=== PATIENT | male | born 1930 | race African-American/Black ===

== ENCOUNTER 2017-08-24 09:16 | Emergency (ER) | payer MEDICARE ==
[~2017-08-24] VITALS: Ht 175.3 cm; Wt 79.4 kg
[2017-08-24 09:08] VITALS: BP 142/92
[~2017-08-24 09:16] MED LIST: CARVEDILOL6.25 MG ORAL; SIMVASTATIN10 MG ORAL
[2017-08-24] MEDS ORDERED: ROBAXIN-750750 MG PO (09:27)
[2017-08-24] MEDS ORDERED: ACETAMINOPHEN500 M3 ORAL (09:27)
[2017-08-24] MEDS ORDERED: Methocarbamol 750mg tab ORAL ONE (09:30)
[2017-08-24 09:46] VITALS: BP 142/92
--- NOTE | 2017-08-24 09:49 | Emergency Room Report ---
History of Present Illness General Chief Complaint: Neck Pain Source: Patient, EMS Present Illness HPI 57-year-old male, hypertension, carotid artery atherosclerosis, being followed by his doctor no surgery necessary at this time, chronic neck spasms for 6 months, presenting with left-sided neck spasm. Patient states he reached over to get something on his bed, had sudden onset of left-sided neck spasms worsened with movement. Denies any headache, blurry vision, slurred speech, motor or sensory weakness. Patient states that he has had this neck spasms multiple times in the past but has never taken any medication because it was never authorized by a doctor Denies fever chills nausea vomiting Pain has improved since coming to the emergency room Allergies: Coded Allergies: No Known Allergies (Unverified , 04/19/14) Patient History Past Medical History: see triage record Past Surgical History: none Pertinent Family History: none Reviewed Nursing Documentation: PMH: Agreed, PSxH: Agreed Nursing Documentation-PMH Past Medical History: No History, Except For Hx Cardiac Problems: No - PROSTATE CA Hx Hypertension: Yes - ARTERIAL BLOCKAGE Hx Cancer: No Hx Gastrointestinal Problems: Yes Hx Neurological Problems: No Review of Systems All Other Systems: negative except mentioned in HPI Physical Exam Vital Signs Date Time Temp Pulse Resp B/P (MAP) Pulse Ox O2 Delivery O2 Flow Rate FiO2 08/24/17 09:00 98.8 92 16 142/92 98 Room Air Sp02 EP Interpretation: reviewed, normal General Appearance: normal inspection, well appearing, no apparent distress, alert, GCS 15, non-toxic Head: normocephalic, atraumatic Eyes: bilateral eye normal inspection, bilateral eye PERRL, bilateral eye EOMI ENT: normal ENT inspection, normal pharynx, normal voice, moist mucus membranes Neck: other - Mild left-sided paraspinal cervical tenderness, tenderness along left deltoid region, full range of motion, no midline tenderness Respiratory: normal inspection, lungs clear, normal breath sounds, no respiratory distress, no retraction, no wheezing, speaking full sentences, chest symmetrical Cardiovascular #1: normal inspection, regular rate, rhythm, no edema, normal capillary refill Cardiovascular #2: 2+ radial (R), 2+ radial (L) Gastrointestinal: normal inspection, non tender, soft, non-distended, no guarding Musculoskeletal: normal inspection, back normal, normal range of motion, non- tender Neurologic: normal inspection, alert, oriented x3, responsive, rn bsn III-XII nml as tested, motor strength/tone normal, sensory intact, normal gait, speech normal Psychiatric: normal inspection, judgement/insight normal, memory normal Skin: normal inspection, normal color, no rash, warm/dry, well hydrated, normal turgor Medical Decision Making Diagnostic Impression: Primary Impression: Neck muscle spasm Additional Impression: Chronic neck pain ER Course 87-year-old male history of chronic neck pain presenting with left-sided neck pain and spasm DDX: likely musculoskeletal cervical pain vs. muscular strain Serious diagnoses such as cord compression, epidural abscess is unlikely in this patient given the clinical scenario and abscess of neurological symptoms or findings. Patient appears nontoxic. Plan: Tylenol, robaxin ER course: Patient has remained nontoxic appearing and ambulatory in the ED. Pain improved w/ medications Disposition: Patient will be discharged to home with prescription of Tylenol and robaxin. Patient cautioned of the effects of robaxin including possible impairment of physical or mental abilities. Patient was instructed to refrain from operating machinery or driving. Patient is also cautioned on the GI effects of motrin and to take sparingly. Patient verbalized understanding. Strict precautions discussed with patient on when to emergently return to the ED which includes severe/worsening back pain, leg weakness/numbness, urinary retention/incontinence, fever or chills, which may indicate severe illness. Patient is to follow up with their PMD within 5 days. Patient agrees with plan. Please note that this Emergency Department Report was dictated using [employer] purification operator technology software, occasionally this can lead to erroneous entry secondary to interpretation by the dictation equipment. Last Vital Signs Date Time Temp Pulse Resp B/P (MAP) Pulse Ox O2 Delivery O2 Flow Rate FiO2 08/24/17 09:08 98.8 16 142/92 98 Room Air 08/24/17 09:00 92 Disposition: HOME, SELF-CARE Condition: Improved Scripts Methocarbamol* (ROBAXIN-750*) 750 Mg Tablet 750 MG PO QID, #28 TAB 0 Refills Prov: Brandyn Castaneda M.D. 08/24/17 Acetaminophen* (ACETAMINOPHEN EXTRA STRENGTH*) 500 Mg Tablet 500 MG ORAL Q8H Y for Fever/Headache/Mild Pain, #30 TAB 0 Refills Prov: Brandyn Castaneda M.D. 08/24/17 Referrals: NOT CHOSEN IPA/MD,REFERRING (PCP) Patient Instructions: Muscle Cramps and Spasms, [id number] Brandyn Castaneda M.D. Aug 24, 2017 09:49
== END 2017-08-24 09:49 | disposition home or self-care (01) ==
LOC: EDBD 09:16 → EMR 09:22
DX: M62.838 Other muscle spasm (principal); M54.2 Cervicalgia; G89.29 Other chronic pain; I10 Essential (primary) hypertension; Z85.46 Personal history of malignant neoplasm of prostate
CPT/HCPCS: 99284